=== PATIENT | female | born 1960 | race Caucasian/White ===

== ENCOUNTER → 2017-10-08 | Outpatient (CLI) | payer BC ==
[2017-10-08] VITALS (10 sets, daily range): BP systolic 118–144; BP diastolic 65–80; PULSE 59–81
[~2017-10-08] VITALS: Ht 162.6 cm; Wt 80.0 kg
[~2017-10-08] MED LIST: LEVOXYL0.05 MG PO
[2017-10-08 09:27] LABS: PROTHROMBIN TIME 11.1 SECONDS (9.7-12.8)
== END ==
LOC: COL.RAD 09:00
PROVIDERS: Physician Assistant
DX: K76.0 Fatty (change of) liver, not elsewhere classified (principal); R76.8 Other specified abnormal immunological findings in serum